=== PATIENT | female | born 1975 | race Caucasian/White ===

== ENCOUNTER → 2023-09-12 07:54 | Outpatient (REF) | payer OTHER, SELFPAY | LOC: EMG 07:54 | PROVIDERS: ATTENDING PHYSICIAN Psychiatry & Neurology Neurology; FAMILY PHYSICIAN Internal Medicine | DX: R29.898 Other symptoms and signs involving the musculoskeletal system (principal) | CPT/HCPCS: 95886; 95910 ==

== ENCOUNTER → 2024-04-02 08:49 | Outpatient (REF) | payer OTHER, SELFPAY | LOC: HWRAD 08:49 | PROVIDERS: ATTENDING PHYSICIAN Psychiatry & Neurology Neurology; FAMILY PHYSICIAN Internal Medicine | DX: M46.1 Sacroiliitis, not elsewhere classified (principal) | CPT/HCPCS: 72192 ==

== ENCOUNTER 2024-06-20 13:53 | Emergency (ER) | payer OTHER, SELFPAY ==
[2024-06-20 14:02] VITALS: BP 144/84
[2024-06-20 15:16] VITALS: BMI 33.4
[2024-06-20 15:36] LABS: % Basophils 0.7 % (0-2); % Eosinophils 1.3 % (0-6); % Immature Granulocytes 0.3 % (0-0.5); % Lymphocytes 40.4 % (20.5-51.1); % Monocytes 8.9 % (1.7-9.3); % Neutrophils 48.4 % (42.2-75.2); Absolute Basophils 0.1 10^3/uL (0-0.2); Absolute Eosinophils 0.1 10^3/uL (0-0.7); Absolute Lymphocytes 3.1 10^3/uL (1.2-3.4); Absolute Monocytes 0.7 10^3/uL (0.1-0.6); Absolute Neutrophils 3.7 10^3/uL (1.4-6.5); Hematocrit 35.9 % (37.0-47.0); Hemoglobin 12.2 g/dL (12.0-16.0); Mean Corpuscular Hgb 31.3 pg (27.0-31.0); Mean Corpuscular Volume 92.1 fL (81.0-99.0); Mean Platelet Volume 8.8 fL (7.4-10.4); Nucleated Red Blood Cells % 0 %; Platelet Count 301 10^3/uL (130-400); Red Cell Dist. Width 12.3 % (11.5-14.5); White Blood Cell Count 7.7 10^3/uL (4.8-10.8)
[2024-06-20 15:41] LABS: Blood Urea Nitrogen 21 mg/dl (7-17); Carbon Dioxide 26 mmol/L (22-30); Chloride 108 mmol/L (98-107); Estimated Creatinine Clearance 120 ml/min; Glucose 103 mg/dl (70-99); Potassium 4.2 mmol/L (3.5-5.1); Sodium 141 mmol/L (135-145); eGFR > 60.00
[2024-06-20 16:09] LABS: Erythrocyte Sed Rate 3 mm/hour (0-20)
[2024-06-20 18:21] LABS: Urine Albumin Negative (Neg - Trace); Urine Bilirubin Negative (Negative); Urine Character Clear (Clear); Urine Color Yellow; Urine Glucose Negative (Negative); Urine Ketone Negative (Negative); Urine Leukocyte Negative (Negative); Urine Nitrite Negative (Negative); Urine Occult Blood 1+ (Negative); Urine Specific Gravity 1.015 (<1.030); Urine Urobilinogen Negative (Neg - 1+)
--- NOTE | 2024-06-20 18:35 | ED.GENMED ---
History of Present Illness
General
Chief Complaint: Back Pain
Source: patient
Exam Limitations: none
Time Seen by Provider: 06/20/24 14:57
History of Present Illness
History of Present Illness:
48-year-old female has had ongoing back issues. Previous fusion. Increasing back pain over months. Followed by pain management and she is trying to get into specialist at [place]. She deals with her back pain through pain management and although
worse the last 3 days she is not here primarily for that reason. She is here because she has had some episodes of urinary incontinence today. No lower extremity weakness no bowel incontinence no fever or other complaints
Past History
Past History
ED Past Medical History: Asthma, Other (Chronic back pain) and Other ([place] syndrome)
ED Past Surgical History: Gynecological and Orthopedic
Review of Systems
Review of Systems
All Other Systems: Not applicable
Constitutional: Denies fever
ABD/GI: Reports no symptoms
Neurological: Denies dizzy, weakness or numbness
Phy Exam
Physical Exam
Physical Exam:
GENERAL: Alert and oriented in no apparent distress
EYE: Orbits normal.
NECK: Supple
CARDIAC: Regular rate and rhythm without any obvious murmurs.
LUNGS: Clear breath sounds,normal
ABDOMEN: Soft, without focal tenderness or distention. No perianal anesthesia. Good rectal tone
NEUROLOGICAL: Alert and oriented , grossly non-focal. Plantar dorsiflexion of the feet symmetrical bilaterally. Slightly decreased patellar reflexes bilaterally but symmetrical. No leg weakness. Light touch intact.
SKIN: Warm and dry, no rash or lesion, no discoloration, skin intact.
MUSCULOSKELETAL: No edema,no deformity.Good color. Clearly in pain with positional movement but able to move. No spinal tenderness. Some left leg pain with right straight leg raising.
PSYCH: Normal and appropriate interaction.
Course
Orders/Labs/Results
Orders:
Orders
06/20/24 15:10
IV Insert/Care/Rem.- Treatment PRN
06/20/24 15:15
Basic Metabolic Panel Urgent
CRP [C-Reactive Protein] Urgent
Complete Blood Count/With Diff Urgent
ESR [Erythrocyte Sed Rate] Urgent
06/20/24 15:18
MR Lumbar W/o & With Contrast Urgent
Reason For Exam: Low back pain/incontinence
Recent pill cam endoscopy?: No
06/20/24 18:04
Urinalysis Reflex To Culture Urgent
Date Specimen was Collected: 06/20/24
Time Specimen was Collected: 18:01
Urine Microscopic Reflex Cult Urgent
06/20/24 19:13
Ketorolac [Toradol] 15 mg IV NOW STA
Tramadol HCl [Ultram] 50 mg PO NOW STA
06/20/24 19:54
CT Abd/pel Without Iv Or Oral Urgent
Comment: per pt contrast allergy modified to W/O per ER
Reason For Exam: Low back pain/incontinence
Abnormal Lab Results
06/20/24 06/20/24
15:15 18:04
RBC 3.90 L 10^6/uL
(4.20-5.40)
Hct 35.9 L %
(37.0-47.0)
MCH 31.3 H pg
(27.0-31.0)
Absolute Monos (auto) 0.7 H 10^3/uL
(0.1-0.6)
Chloride 108 H mmol/L
(98-107)
BUN 21 H mg/dl
(7-17)
Glucose 103 H mg/dl
(70-99)
C-Reactive Protein 13.80 H mg/L
(0.0-10.00)
Ur Occult Blood Reflex 1+ A
(Negative)
06/20/24 15:15
06/20/24 15:15
Vital Signs
Initial and Last Documented VS:
Initial Vital Signs
Temp Pulse Resp BP Pulse Ox
98.3 F 104 18 144/84 96
06/20/24 14:02 06/20/24 14:02 06/20/24 14:02 06/20/24 14:02 06/20/24 14:02
Last Documented Vital Signs
Temp Pulse Resp BP Pulse Ox
98.3 F 86 16 121/84 97
06/20/24 14:02 06/20/24 19:54 06/20/24 19:54 06/20/24 21:32 06/20/24 21:32
MDM/Problems Addressed
Differential Diagnosis Includes:
Patient with some urinary incontinence and ongoing back issues. Slightly decreased patellar reflexes but motor intact. No perianal anesthesia. No decreased rectal tone. She is emptying her bladder based on urine and ultrasound postvoid. MRI
pending
*Radiology
Radiology exam reviewed: radiology read reviewed (Moderate right foraminal narrowing narrowing L5-S1. Mild disc paracentral 2 mm L3-L4 with flattening of thecal sac) and other (MRI with grade 1 anterior listhesis L5 upon S1. Moderate right
foraminal stenosis L5-S1. New 2 mm paracentral disc protrusion L3-L4)
*Pulse Oximetry
Patient hypoxic: no
*Critical Care Note
Total Time (30-74mins, 75-104mins- exclusive of procedures): Not Applicable
Update Note
Update Note:
MRI with some findings but nothing that would explain bladder incontinence. Good lower extremity strength. Will get a CT of the pelvis to be sure this is not a pelvic issue. Also will contact patient's corporate communications specialist at [place]
CT scan shows arthrosis. No acute intra-abdominal issue. Liver [facility]. Thickened bladder wall discussed with covering
Discussed with covering specialist at [place]. None of this supports an acute neurosurgical emergency. I suspect her bladder incontinence may be related to pain. She agrees. Offered admission for pain management although medically stable. Patient
is comfortable with outpatient management
ED Attending Note
-
Portions of this chart may have been created with voice recognition software.� Occasional wrong word or��sound alike� substitutions may have occurred due to the inherent limitations of voice recognition software.
Discharge Plan
Departure
Patient Disposition: Home (Routine Discharge)
Date of Disposition: 06/20/24
Time of Disposition: 21:38
Patient with high blood pressure during this ER visit?: Yes
Discharge Problem:
Bladder incontinence, Bladder wall thickening, Arthrosis lumbar spine, Previous fusion, Bladder wall thickening
Instructions: Low Back Pain (DC), BLOOD PRESSURE
Prescriptions:
No Action
cetirizine 10 MG tablet
10 mg PO HS
cyanocobalamin (vitamin B-12) 1,000 MCG tablet
1,000 mcg PO DAILY
montelukast 10 MG tablet
10 mg PO QPM
magnesium 250 MG tablet
250 mg PO DAILY
naproxen 500 MG tablet
500 mg PO BID PRN (Reason: pain)
cholecalciferol (vitamin D3) 1,000 UNITS tablet
1,000 units PO DAILY
albuterol sulfate 1 PUFF HFA aerosol inhaler
1 puff inhalation R Q4HPRN PRN (Reason: SOB)
cannabidiol [Epidiolex] 1 UNIT solution
1 unit inhalation PRN PRN (Reason: pain)
Referrals:
UNKNOWN - PT DOES,NOT KNOW [Family Provider] -
Activity Restrictions/Additional Instructions:
Follow-up your CT findings with your primary physician.
For completeness to consider seeing a urologist at some point for the bladder wall thickening
Call your corporate communications specialist tomorrow
Return immediately with increased or new neurologic symptoms including lower extremity weakness numbness fever or any other concerning symptoms
Interventions
Interventions:
*Risk Screen - Suicide Last Done: 06/20/24 14:02
*General Assessment Last Done: 06/20/24 16:16
*Neglect/Abuse Screening Last Done: 06/20/24 16:16
*ED- Fall Risk Assessment Last Done: 06/20/24 16:16
*ED COVID-19 Vaccine History Last Done: 06/20/24 16:16
ED-Musculoskeletal Assessment Last Done: 06/20/24 16:16
Discharge Date and Time
Print Language: DANISH
--- NOTE | 2024-06-20 19:00 | EDRN ---
Report recived, patient back from MRI, stating that she changed her mind but pain meds, informed Dr. Trinidad
[2024-06-20 19:22] LABS: Urine Red Blood Cell 0-2 /HPF (0-2); Urine White Cell 0-2 /HPF (0-5)
[2024-06-20] MEDS: TORADOL 15 MG IV (19:32)
[2024-06-20] MEDS: ULTRAM 50 MG PO (19:32)
--- NOTE | 2024-06-20 19:48 | EDRN ---
Dr. Trinidad at bedside going over results of MRI with patient.
[2024-06-20 19:54] VITALS: BP 123/83
[2024-06-20 21:32] VITALS: BP 121/84
== END 2024-06-20 22:31 | disposition home or self-care (01) ==
LOC: EMR 13:53
PROVIDERS: EMERGENCY PHYSICIAN Emergency Medicine
DX: R32 Unspecified urinary incontinence (principal); N32.89 Other specified disorders of bladder; M54.50 Low back pain, unspecified; R03.0 Elevated blood-pressure reading, without diagnosis of hypertension; J45.909 Unspecified asthma, uncomplicated; G89.29 Other chronic pain; E24.9 Cushing's syndrome, unspecified; M51.26 Other intervertebral disc displacement, lumbar region; M48.061 Spinal stenosis, lumbar region without neurogenic claudication; Z98.1 Arthrodesis status; Z91.041 Radiographic dye allergy status; Z91.013 Allergy to seafood; Z88.8 Allergy status to other drugs, medicaments and biological substances; Z91.018 Allergy to other foods
CPT/HCPCS: 99284; 96374; 72158; 74176; 80048; 81003; 81015; 85025; 85652; 86140; A9575

== ENCOUNTER → 2025-02-04 08:06 | Outpatient (REF) | payer OTHER, SELFPAY ==
[2025-02-04 08:49] LABS: Hematocrit 37.7 % (37.0-47.0); Hemoglobin 12.8 g/dL (12.0-16.0); Mean Corp Hgb Conc. 34.0 g/dL (33.0-37.0); Mean Corpuscular Volume 91.3 fL (81.0-99.0); Nucleated Red Blood Cells % 0 %; Platelet Count 344 10^3/uL (130-400); Red Cell Dist. Width 12.3 % (11.5-14.5)
[2025-02-04 09:35] LABS: ALT (SGPT) 43 U/L (0-35); AST (SGOT) 19 U/L (14-36); Albumin 4.3 g/dl (3.5-5.0); Alkaline Phosphatase 115 U/L (38-126); Blood Urea Nitrogen 15 mg/dl (7-17); Calcium 9.3 mg/dl (8.4-10.2); Carbon Dioxide 25 mmol/L (22-30); Chloride 104 mmol/L (98-107); Glucose 85 mg/dl (70-99); Potassium 4.4 mmol/L (3.5-5.1); Sodium 138 mmol/L (135-145); Total Protein 7.0 g/dl (6.3-8.2); eGFR > 60.00
[2025-02-04 09:39] LABS: C-Reactive Protein 10.80 mg/L (0.0-10.00)
[2025-02-06 08:43] LABS: CCP Antibody IgG/IgA 8 Units (0-19)
== END ==
LOC: EMG 08:06
PROVIDERS: Internal Medicine Rheumatology; ATTENDING PHYSICIAN Orthopaedic Surgery; FAMILY PHYSICIAN Internal Medicine
DX: R20.0 Anesthesia of skin (principal)
CPT/HCPCS: 36415; 80053; 85025; 85652; 86140; 86200; 86430; 95886; 95910